=== PATIENT | female | born 1975 | race Two or more races ===

== ENCOUNTER 2025-02-09 16:25 | Emergency (ER) | payer OTHER ==
[~2025-02-09] VITALS: Ht 157.5 cm; Wt 86.5 kg
[2025-02-09 18:36] VITALS: BP 175/86; PULSE 77; RESP 20; TEMP 98.2; O2SAT 98
[2025-02-09] MEDS ORDERED: IBUP-1456 PO (18:47)
[2025-02-09] MEDS ORDERED: CLIN1CAP70 PO (18:47)
--- NOTE | 2025-02-09 18:47 | DVH ---
CLINICAL INDICATION: LEFT THUMB PAIN/LACERATION TECHNIQUE: XY L HAND 3V XRAY Comparison: None FINDINGS/IMPRESSION: : Mildly displaced fracture of the distal phalanx of the 1st digit. Soft-tissue laceration of the distal 1st digit. No appreciable radiopaque foreign body.
--- NOTE | 2025-02-09 18:50 | ED.PDOC ---
HPI Comments 49 YEAR OLD FEMALE PRESENTS TO ER WITH COMPLAINTS OF LACERATION TO LEFT THUMB X 1 DAY. 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 SHE REPORTS 8/10 PAIN LOCALIZED TO LACERATION OF LEFT THUMB AND DOES HAVE MILD NUMBNESS TO LEFT THUMB. STATES SHE IS UNSURE WHEN HER LAST TETANUS SHOT WAS. DENIES ANY FURTHER SYMPTOMS/COMPLAINTS Chief Complaint: Laceration Time Seen by MD: 18:15 Primary Care Provider: UNKNOWN Reviewed Notes: Nurses Notes, Medications, Allergies Allergies: Coded Allergies: NO KNOWN ALLERGIES (Unverified , 02/09/25) Home Meds Active Scripts Ibuprofen (Ibuprofen) 800 Mg Tab, 1 TAB PO TID PRN, #30 TAB 0 Refills Prov:KEV FOX 02/09/25 Clindamycin Hcl (Clindamycin Hcl) 300 Mg Cap, 1 CAP PO TID for 7 Days, #21 CAP 0 Refills Prov:KEV FOX 02/09/25 Information Source: Patient Mode of Arrival: Ambulatory Complexity: Intermediate Laceration Length (cm): 3 Skin Type: Irregular Past Medical History PAST MEDICAL HISTORY: Denies Surgical History: Denies all surgeries PASSENGER [employer] INSPECTOR History: No Pertinent PASSENGER TIRE INSPECTOR History Family History Family History: Unknown Social History Smoker: Non-Smoker Alcohol: Denies ETOH Use Drugs: Denies Drug Use Lives In: Home Constitutional: denies: chills, diaphoresis, fatigue, fever, malaise, sweats, weakness, others EENTM: denies: blurred vision, double vision, ear bleeding, ear discharge, ear drainage, ear pain, ear ringing, eye pain, eye redness, hearing loss, mouth pain, mouth swelling, nasal discharge, nose bleeding, nose congestion, nose pain, photophobia, tearing, throat pain, throat swelling, voice changes, others Respiratory: denies: cough, hemoptysis, orthopnea, SOB at rest, shortness of breath, SOB with excertion, stridor, wheezing, others Cardiovascular: denies: chest pain, dizzy spells, diaphoresis, Dyspnea on exertion, edema, irregular heart beat, left arm pain, lightheadedness, palpitations, PND, syncope, others Gastrointestinal: denies: abdomen distended, abdominal pain, blood streaked bowels, constipated, diarrhea, dysphagia, difficulty swallowing, hematemesis, melena, nausea, poor appetite, poor fluid intake, rectal bleeding, rectal pain, vomiting, others Genitourinary: denies: abnormal vagina bleeding, burning, dyspareunia, dysuria, flank pain, frequency, hematuria, incontinence, pain, , vagina discharge, urgency, others Neurological: denies: dizziness, fainting, headache, left sided numbness, left sided weakness, numbness, paresthesia, pre-existing deficit, right sided numbness, right sided weakness, seizure, speech problems, tingling, tremors, weakness, others Musculoskeletal: reports: others ( STATED IN HPI) Integumetry: reports: others ( STATED IN HPI) Allergic/Immunocompromised: denies: Difficulty Healing, Frequent Infections, Hives, Itching, others Hematologic/Lymphatic: denies: anemia, blood clots, easy bleeding, easy bruising, swollen glands, others Endocrine: denies: excessive hunger, excessive sweating, excessive thirst, excessive urination, flushing, intolerance to cold, intolerance to heat, unexplained weight gain, unexplained weight loss, others Psychiatric: denies: anxiety, bipolar disorder, depression, hopeless, panic disorder, schizophrenia, sleepless, suicidal, others Physical Exam General Appearance: No Apparent Distress HEENT: PERRL/EOMI Neck: Full Range of Motion, Non-Tender, Normal Respiratory: Chest Non-Tender, Lungs Clear, No Accessory Muscle Use, No Respiratory Distress, Normal Breath Sounds Cardiovascular: No Murmur, No Gallop, Regular Rate/Rhythm Breast Exam: Deferred Gastrointestinal: NOT DONE Genitalia: Deferred Pelvic: Deferred Rectal: Deferred Extremities: Normal capillary refill, Normal range of motion Neurologic: Alert, No Motor Deficits, Normal Affect, Normal Mood, No Sensory Deficits Cerebellar Function: Normal Reflexes: Normal Skin: Dry, Warm Peripheral Pulses: 2+ Radial (R), 2+ Radial (L), 2+ Brachial (R), 2+ Brachial (L) Lymphatic: No Adenopathy Was a procedure done? Was a procedure done?: Yes Sedation Sedation?: No Laceration Repair : Location LEFT 1ST FINGER Length 3 CM Anesthetic: Lidocaine (1%), Without epi Laceration Repair Prep: Saline, Betadine, by Irrigation (HEAVILY IRRIGATED WITHOUT ANY SIGNS OF FOREIGN BODY) Laceration Repair Wound Comple: epidermis/dermis repair Laceration Repair: Number of sutures (TOTAL OF 4 SUTURES PLACED - PATIENT TOLERATED WELL WITHOUT ANY COMPLICATION), Size (4-0), Nylon, Simple, Non- adherent gauze Informed consent obtained: Yes Risks, benefits, and alternati: Yes Images 1 - 3 CM LACERATION NOTED TO LEFT 1ST FINGER WITH PARTIAL NAILBED INVOLVEMENT. SLIGHT TTP/SWELLING/ERYTHEMA NOTED TO WOUND EDGES. NO NAILBED LACERATION/FURTHER SKIN CHANGES NOTED. SLIGHT LIMITATION ON FLEXION OF LEFT THUMB NOTED. PULSES INTACT Differential diagnosis Generic Laceration: Retained Foriegn Body, Neurovascular Injury, Tendon Injury X-Ray, Labs, Meds, VS Vital Signs Date Time Temp Pulse Resp B/P (MAP) Pulse Ox O2 Delivery O2 Flow Rate FiO2 02/09/25 18:36 98.2 77 20 175/86 (115) 98 98.2 02/09/25 16:47 98.2 77 20 175/86 (115) 98 Current Medications Medications (Trade) Dose Ordered Sig/Christine Route Start Time Stop Time Status Last Admin Cefazolin Sodium 50 ml @ 100 mls/hr ONCE ONCE IV 02/09/25 18:45 02/09/25 19:14 DC 02/09/25 19:44 Cefazolin Sodium 50 ml @ 100 mls/hr ONCE ONCE IV 02/09/25 18:45 02/09/25 19:14 DC 02/09/25 19:44 Diphtheria/ Tetanus/Acell Pertussis (Boostrix T-Dap) 0.5 ml ONCE ONCE IM 02/09/25 18:45 02/09/25 18:46 DC 02/09/25 19:01 Acetaminophen/ Hydrocodone Bitart ([place] 5/325MG Tab) 1 tab ONCE ONCE PO 02/09/25 18:45 02/09/25 18:46 DC 02/09/25 19:00 Ondansetron HCl (Zofran Po) 4 mg ONCE ONCE PO 02/09/25 18:45 02/09/25 18:46 DC 02/09/25 19:01 Lidocaine HCl (Xylocaine 1%) ONCE ONCE ID 02/09/25 19:00 02/09/25 19:01 DC 02/09/25 19:00 PATIENT: LEV SALAST: [id number]: [id number] : 1975 LOC: ER ROOM / BED: / AGE / SEX: 49 / F ADM STATUS: REG ER SERVICE 14 ORDERING PHYSICIAN: KEV FOX PROCEDURE(s): LHAN - L HAND 3V XRAY REASON: LEFT THUMB PAIN/LACERATION ORDER NUMBER(s): [id number], ACCESSION NUMBER(s): [id number] CLINICAL INDICATION: LEFT THUMB PAIN/LACERATION TECHNIQUE: XY L HAND 3V XRAY Comparison: None FINDINGS/IMPRESSION: : Mildly displaced fracture of the distal phalanx of the 1st digit. Soft-tissue laceration of the distal 1st digit. No appreciable radiopaque foreign body. ATED BY: BERNARDINO JUAREZ MD DICTATED DATE/TIME: 02/09/251841 SIGNED BY: BERNARDINO JUAREZ MD SIGNED DATE/TIME: 02/09/251841 CC: LEFT HAND X-RAY REVIEWED T-DAP .5 ML IM ORDERED HEP-LOCK IV ORDERED ANCEF 2 G IV ORDERED NORCO 5/325 MG P.O. ORDERED ZOFRAN 4 MG P.O. ORDERED LEFT THUMB SPICA SPLINT APPLIED ADVISED TO F/U IN 2 DAYS FOR WOUND CHECK ADVISED TO F/U IN 10-14 DAYS FOR REMOVAL OF SUTURES PATIENT NEUROVASCULARLY INTACT AND HAD IMPROVEMENT IN SYMPTOMS PRIOR TO DISCHARGE ADVISED ON REST/NO STRENOUS ACTIVITY, ELEVATION AND ALTERNATE ICE ON/OFF NEEDED FOR PAIN/SWELLING PATIENT PROVIDED INFORMATION WITH REGARDS TO LOCAL ORTHOPEDIC HAND SPECIALISTS AND PCPS AND ADVISED TO F/U IN 1-2 DAYS PATIENT VERBALIZED UNDERSTANDING AND AGREEABLE WITH CURRENT PLAN OF CARE ADVISED TO RETURN TO ER IMMEDIATELY IF SYMPTOMS WORSEN Images Reviewed?: Images reviewed and evaluated by me Time of 1ST Reevaluation: 18:34 Reevaluation 1ST: N/A Time of 2ND Reevaluation: 19:44 Reevaluation 2ND: Improved Patient Education/Counseling: Diagnosis, Treatment, Prognosis, Need For Follow Up Family Education/Counseling: No Family Present Departure 1 Departure Time of Disposition: 19:48 Impression: Primary Impression: Laceration of thumb, left Qualified Codes: S61.112A - Laceration without foreign body of left thumb with damage to nail, initial encounter Additional Impression: Fracture of thumb, left, open Qualified Codes: S62.515B - Nondisplaced fracture of proximal phalanx of left thumb, initial encounter for open fracture Disposition: HOME / SELF CARE / HOMELESS Condition: Stable e-Prescriptions Ibuprofen (Ibuprofen) 800 Mg Tab 1 TAB PO TID PRN, #30 TAB 0 Refills Prov: KEV FOX 02/09/25 Clindamycin Hcl (Clindamycin Hcl) 300 Mg Cap 1 CAP PO TID for 7 Days, #21 CAP 0 Refills Prov: KEV FOX 02/09/25 Discharged With: Friend Critical Care Note Critical Care Time?: No Stability Stability form required: No Heart Score Heart Score: Heart Score Response (Comments) Value History N/A 0 EKG N/A 0 Age N/A 0 Risk Factors N/A 0 Troponin N/A 0 Total 0 KEV FOX Feb 09, 2025 18:50
[2025-02-09] MEDS: HYDROcodone-ACET 5/325MG TAB PO ONE (19:00)
[2025-02-09] MEDS: LIDOCAINE 1% HCL (LOCAL ANESTH.) INJ 20ML MDV ID ONE (19:00)
[2025-02-09] MEDS: ONDANSETRON ODT 4 MG TAB PO ONE (19:01)
[2025-02-09] MEDS: TETANUS-DIPTH-ACEL PERTUSSIS 0.5ML SYR Tdap IM ONE (19:01)
[2025-02-09] MEDS: ceFAZolin 1GM/50ML 50 ML IV ONE ×2 (19:44)
== END 2025-02-09 20:25 | disposition home or self-care (01) ==
LOC: ER 16:25
DX: S62.512A Displaced fracture of proximal phalanx of left thumb, initial encounter for closed fracture (principal); S61.012A Laceration without foreign body of left thumb without damage to nail, initial encounter; W45.8XXA Other foreign body or object entering through skin, initial encounter; Y93.89 Activity, other specified; Y92.89 Other specified places as the place of occurrence of the external cause; Y99.8 Other external cause status
CPT/HCPCS: 12002; 73130; 90471; 90715; 96365; 99284; J0690; J2003; Q0162